=== PATIENT | female | born 1945 | race Caucasian/White ===

== ENCOUNTER → 2023-07-21 11:09 | Outpatient (REF) | payer MEDICARE, BC, SELFPAY ==
[2023-07-21 12:01] LABS: Urine Albumin 2+ (Neg - Trace); Urine Bilirubin Negative (Negative); Urine Character Slightly Cloudy (Clear); Urine Color Yellow; Urine Glucose Negative (Negative); Urine Ketone Negative (Negative); Urine Leukocyte 2+ (Negative); Urine Nitrite Negative (Negative); Urine Occult Blood 2+ (Negative); Urine Urobilinogen Negative (Neg - 1+)
[2023-07-21 12:14] LABS: Urine Squamous Cell >30 /LPF (Few)
[2023-07-21 12:15] LABS: Urine White Cell 80-90 /HPF (0-5)
[2023-07-21 12:17] LABS: Urine Bacteria Many (Negative); Urine Red Blood Cell 0-2 /HPF (0-2)
[2023-07-21 12:35] LABS: Blood Urea Nitrogen 32 mg/dl (7-17); Calcium 9.7 mg/dl (8.4-10.2); Carbon Dioxide 26 mmol/L (22-30); Chloride 102 mmol/L (98-107); Glucose 163 mg/dl (70-99); HDL Cholesterol 45 mg/dl; LDL Cholesterol, Calculated 184 mg/dl; Phosphorus 4.9 mg/dl (2.5-4.5); Potassium 4.6 mmol/L (3.5-5.1); Sodium 137 mmol/L (135-145); Total Cholesterol 280 mg/dl (50-199); Triglyceride 255 mg/dl (10-149); Very Low Density Lipoprotein 51 mg/dl (0-30); eGFR 25.26
[2023-07-21 12:40] LABS: TSH Reflex To Free T4 1.27 uIU/ml (0.47-4.68)
[2023-07-21 12:49] LABS: Hemoglobin 13.2 g/dL (12.0-16.0)
[2023-07-24 09:59] LABS: Intact PTH 72.3 pg/ml (13.6-85.8)
== END ==
LOC: REG 11:09
PROVIDERS: ATTENDING PHYSICIAN Specialist; FAMILY PHYSICIAN Family Medicine
DX: E78.49 Other hyperlipidemia (principal); R53.82 Chronic fatigue, unspecified; R31.9 Hematuria, unspecified; D64.9 Anemia, unspecified; N18.4 Chronic kidney disease, stage 4 (severe); E83.39 Other disorders of phosphorus metabolism
CPT/HCPCS: 36415; 80048; 80061; 81003; 81015; 83970; 84100; 84443; 85018

== ENCOUNTER → 2023-12-03 14:24 | Outpatient (REF) | payer MEDICARE, BC, SELFPAY | LOC: RAD 14:24 | PROVIDERS: ATTENDING PHYSICIAN Family Medicine | DX: R07.89 Other chest pain (principal) | CPT/HCPCS: 75571 ==

== ENCOUNTER → 2023-12-13 14:51 | Outpatient (REF) | payer MEDICARE, BC, SELFPAY | LOC: WDC 14:51 | PROVIDERS: ATTENDING PHYSICIAN Family Medicine | DX: Z12.31 Encounter for screening mammogram for malignant neoplasm of breast (principal) | CPT/HCPCS: 77063; 77067 ==

== ENCOUNTER → 2023-12-21 16:37 | Outpatient (REF) | payer MEDICARE, BC, SELFPAY | LOC: RCS 16:37 | PROVIDERS: ATTENDING PHYSICIAN Family Medicine | DX: R07.89 Other chest pain (principal) | CPT/HCPCS: 93306 ==

== ENCOUNTER → 2024-01-17 13:41 | Outpatient (REF) | payer MEDICARE, BC, SELFPAY ==
[2024-01-17 14:56] LABS: ALT (SGPT) 19 U/L (0-35); AST (SGOT) 21 U/L (14-36); Albumin 3.8 g/dl (3.5-5.0); Alkaline Phosphatase 47 U/L (38-126); Direct Bilirubin 0.1 mg/dl (0.0-0.4); Total Bilirubin 1.9 mg/dl (0.2-1.3); Total Protein 6.5 g/dl (6.3-8.2)
== END ==
LOC: REG 13:41
PROVIDERS: ATTENDING PHYSICIAN Nurse Practitioner Family; FAMILY PHYSICIAN Family Medicine; REFERRING PHYSICIAN Internal Medicine Interventional Cardiology
DX: E78.2 Mixed hyperlipidemia (principal); I70.90 Unspecified atherosclerosis
CPT/HCPCS: 36415; 80076

== ENCOUNTER → 2024-01-20 07:24 | Outpatient (REF) | payer MEDICARE, BC, SELFPAY | LOC: DHCBC/DCA 07:24 | PROVIDERS: ATTENDING PHYSICIAN Internal Medicine Interventional Cardiology; FAMILY PHYSICIAN Family Medicine | DX: R07.89 Other chest pain (principal) | CPT/HCPCS: 78452; 93017; A9500; J2785 ==

== ENCOUNTER 2024-01-24 10:08 | Inpatient (IN) | payer MEDICARE, BC, SELFPAY ==
[2024-01-24] VITALS (16 sets, daily range): BP systolic 124–165; BP diastolic 48–77; BMI 29.0; BMI 29.2
[2024-01-24] MEDS: NSS 237 ML IV (06:45)
[2024-01-24 06:57] LABS: Hematocrit 36.4 % (37.0-47.0); Hemoglobin 12.3 g/dL (12.0-16.0); Mean Corp Hgb Conc. 33.8 g/dL (33.0-37.0); Mean Corpuscular Hgb 27.2 pg (27.0-31.0); Mean Corpuscular Volume 80.5 fL (81.0-99.0); Mean Platelet Volume 7.9 fL (7.4-10.4); Platelet Count 218 10^3/uL (130-400); Red Blood Cell Count 4.52 10^6/uL (4.20-5.40); Red Cell Dist. Width 14.5 % (11.5-14.5); White Blood Cell Count 12.2 10^3/uL (4.8-10.8)
[2024-01-24 06:59] LABS: Glucose - Point of Care 130 mg/dl (70-99)
[2024-01-24 07:18] LABS: ALT (SGPT) 18 U/L (0-35); AST (SGOT) 23 U/L (14-36); Albumin 4.2 g/dl (3.5-5.0); Alkaline Phosphatase 50 U/L (38-126); Blood Urea Nitrogen 39 mg/dl (7-17); Calcium 9.8 mg/dl (8.4-10.2); Carbon Dioxide 22 mmol/L (22-30); Chloride 106 mmol/L (98-107); Estimated Creatinine Clearance 23 ml/min; Glucose 131 mg/dl (70-99); Potassium 4.7 mmol/L (3.5-5.1); Sodium 143 mmol/L (135-145); Total Protein 7.2 g/dl (6.3-8.2); eGFR 23.67
[2024-01-24] MEDS: ASPIR LOW (ENTERIC COATED) 81 MG PO (07:25)
--- NOTE | 2024-01-24 07:53 | ITS.CL.CATH ---
Industrial Laborer - Catheterization
Cardiac Catheterization
Procedure Report:
LEFT HEART CATHETERIZATION
Date of Procedure: January 24, 2024
Referring: Alexsandra Gómez MD, [facility], [facility]
PROCEDURES:
1. Left heart catheterization, coronary angiogram.
2. Ultrasound-guided access.
INDICATION: Exertional chest discomfort with abnormal stress test.
ACCESS: Right radial artery, 6 1 sheath, under ultrasound guidance.
HEMODYNAMICS : (mmHg)
AO (s/d) : 140/63
LV (s/d) : 132/70
LVEDP : 23
CORONARY FINDINGS
DOMINANCE: Right
LEFT MAIN: The left renal artery is a large-caliber vessel which has rise to the left anterior descending artery and the left circumflex artery. There is minimal luminal irregularities.
LEFT ANTERIOR DESCENDING: The left anterior descending artery is a medium to large caliber vessel which gives rise to 1 major diagonal branch as it courses through the anterior interventricular groove towards the apex. Mid LAD just proximal to the
takeoff of a medium to large caliber diagonal branch has a 90% hazy stenosis which is likely culprit for patient's ongoing symptoms and abnormal stress test. Proximal LAD has diffuse mild atherosclerotic plaque.
CIRCUMFLEX: The left circumflex artery is a medium caliber vessel which gives rise to 2 major obtuse marginal branches and a small to medium caliber left posterolateral branch. Mid left circumflex just proximal to OM 2 has a tubular 50% stenosis.
Otherwise there is minimal luminal irregularities.
RIGHT CORONARY ARTERY: The right coronary artery is a large-caliber, dominant vessel which gives rise to the right posterior descending artery and the right posterolateral system. There is a tubular 50% stenosis in the mid RCA which has otherwise
mild diffuse atherosclerotic plaque with mild coronary calcification.
SEDATION: 42minutes of procedural sedation was utilized. An independent medical scientist was present to assist with and help manage the patient's level of consciousness and physiologic status.
RADIATION SUMMARY: Fluoro Time (min): 4.0, Dose (mGy): 265.8 DAP (Gy.cm2) : 18.4
Closure Device: Vascular band over right radial artery, 10 cc of air.
CONCLUSIONS
1. Significant 85 to 90% mid LAD stenosis.
2. 50% mid RCA and mid left circumflex stenosis just proximal to OM takeoff.
3. Elevated LVEDP at 23 mmHg.
RECOMMENDATIONS
1. We loaded with 600 mg of Plavix with plans for a stage PCI in 48 hours in the setting of CKD stage IV.
2. Gentle diuresis in the setting of elevated LVEDP and nephrology input.
3. Continue daily baby aspirin and increase statin dose to high intensity.
4. Continue with beta-eugenia.
5. Eventual referral for outpatient cardiac rehab.
Alexsandra Gómez MD, FACC, [facility]
[2024-01-24] MEDS: NSS 1000 IV (09:35)
[2024-01-24] MEDS: LASIX 40 MG IV (09:55)
--- NOTE | 2024-01-24 10:49 | PTCARENOTE ---
Rec'd report from Alesia in the laboratory technologist; Rec'd pt AAOx3 w/no c/o CP or SOB. Pt able to ambulate from stretcher to BR then to bed w/1P assist & SPC. Pt's gait slow, but steady. Pt w/R radial band in place w/no signs or symptoms of bleeding or
hematoma. Pt's VS stable w/HR in the 60's, BP on arrival 153/63. Pt's SpO2 99-100% on RA. Pt w/call brooks within reach & plan of care ongoing.
--- NOTE | 2024-01-24 11:17 | PTCARENOTE ---
0953: Upon removing 3ml air from Right Radial band, pt noted to be bleeding at site. 3 ml air immediately replaced and bleeding stopped. Will continue to monitor. Pt tolerating all well.
1005: Pt to 2250, via stretcher, with RN x1, all approprite monitoring in place, without further incident or change. Updated pt report provided to Chad, RNs, at bedside. All questions addressed. Care transferred.
--- NOTE | 2024-01-24 12:03 | CM ---
spoke to pt in room, she is prev indep, lives with her husb in a split level home with 13 [address] [place]. she has a cane and a walker she uses. plan is for dc to home when medically stable.
[2024-01-24 12:14] LABS: Glucose - Point of Care 155 mg/dl (70-99)
--- NOTE | 2024-01-24 13:09 | W.CON.NEPH ---
Consultation
-
Date/Time Consultation Requested: 01/24/24 1149
Date/Time Consultation Performed: 01/24/24 1300
Requesting Provider: Dr Gabriele Stafford
Performing Provider: Chey Aburto
Reason for Consultation: CKD4
Medical History
-
Chief Complaint: s/p LHC for postive stress test
History of Present Illness:
Ms Walker is 79y/o F with PMH of CKD stage [address] Florentino cr baseline of 1.9-2, type2 DM on insulin, Ozempic, Hypothyroidism on Levothyroxine, HLD low dose statin, HTN on Bystolic who saw cards out pt for exertional CP and had positive stress
test. She had elective LHC today show LAD 85-90%, 50% mid RCA and Mid Circumflex art, LVEDP 23. She received a dose of lasix. Cards planning to have repeat cath Wednesday for stage PCI. Pt reprots no active CP, sob, no n/v. No abd pain. No dysuria.
Her cr at 2.1 today. Nephrology consulted for renal stabilization for next cath.
Past Medical History
Hypertension
Hyperlipidemia
Diabetes insulin-dependent without microvascular complications
Osteopenia
Hypothyroidism
CKD stage 4
History of hemodialysis Apr 2017 to Mar 2018
Anemia
Left arm fistula
History of microscopic hematuria with negative cystoscopy
Past Surgical History: Other (Left arm fistula, hip infection removal of prosthesis)
Social History
Tobacco: Former Smoker
Alcohol: None
Living: With Family
Family History
no history of kidney disease
Mother with the CAD and diabetes
Allergies / Home Medications
Allergy/AdvReac Type Severity Reaction Status Date / Time
AALIYAH Inhibitors Allergy SEE comment Verified 01/24/24 07:02
�Medication �Instructions �Recorded �Confirmed �Type
cholecalciferol (vitamin D3) 50 2,000 unit PO DAILY 02/26/17 01/24/24 History
mcg (2,000 unit) capsule (Vitamin
D3)
levothyroxine 125 mcg tablet 100 mcg PO ALYSHASA@0800 02/26/17 01/24/24 History
cyanocobalamin (vitamin B-12) 2,000 mcg PO DAILY ##30 05/15/17 01/24/24 Rx
2,000 mcg tablet,extended release
(Vitamin B-12 ER)
aspirin 81 mg chewable tablet 81 mg PO QPM 01/24/24 01/24/24 History
betamethasone valerate 0.1 % 1 applic topical TID PRN armpits 01/24/24 01/24/24 History
topical cream
famotidine 20 mg tablet (Pepcid) 20 mg PO BID 01/24/24 01/24/24 History
insulin glargine 100 unit/mL (3 10 unit SC HS 01/24/24 01/24/24 History
mL) subcutaneous pen (Lantus
Solostar U-100 Insulin)
nebivolol 5 mg tablet (Bystolic) 5 mg PO HS 01/24/24 01/24/24 History
rosuvastatin 5 mg tablet 5 mg PO HS 01/24/24 01/24/24 History
semaglutide 0.25 mg or 0.5 mg (2 0.5 mg SC QWEEK 01/24/24 01/24/24 History
mg/1.5 mL) subcutaneous pen
injector (Ozempic)
Review of Systems
-
All complete 12 point review of system inquiry and found negative other than stated in HPI
Physical Exam
Vital Signs
Vital Signs
Temp Pulse Resp BP Pulse Ox
97.7 F 68 18 149/75 100
01/24/24 11:37 01/24/24 11:30 01/24/24 11:37 01/24/24 11:15 01/24/24 11:37
Lab Results
WBC 12.2 10^3/uL (4.8-10.8) H 01/24/24 06:46
RBC 4.52 10^6/uL (4.20-5.40) 01/24/24 06:46
Hgb 12.3 g/dL (12.0-16.0) 01/24/24 06:46
Hct 36.4 % (37.0-47.0) L 01/24/24 06:46
Plt Count 218 10^3/uL (130-400) 01/24/24 06:46
Sodium 143 mmol/L (135-145) 01/24/24 06:46
Potassium 4.7 mmol/L (3.5-5.1) 01/24/24 06:46
Chloride 106 mmol/L (98-107) 01/24/24 06:46
Carbon Dioxide 22 mmol/L (22-30) 01/24/24 06:46
BUN 39 mg/dl (7-17) H 01/24/24 06:46
Creatinine 2.1 mg/dL (0.6-1.0) H 01/24/24 06:46
eGFR 23.67 01/24/24 06:46
Glucose 131 mg/dl (70-99) H 01/24/24 06:46
Calcium 9.8 mg/dl (8.4-10.2) 01/24/24 06:46
Albumin 4.2 g/dl (3.5-5.0) 01/24/24 06:46
Physical Exam
General: Awake, Alert, Oriented, AOx3, No Distress and Nontoxic
HEENT: EOMI, Anicteric, Conjunctivae Clear and Neck Supple
Respiratory: Clear, Normal Excursion and Nonlabored Respirations
Cardiac: S1/S2 and Regular Rate/Rhythm
Breast: Deferred by me
Abdomen: Soft, Nontender and Nondistended
Musculoskeletal: No Cyanosis and No Edema
Skin: No Rash
Neuro: Nonfocal/Grossly Intact
Psych: Mood/afflect pleasant, Insight/judgement good and Appropriate
Assessment/Plan
-
IMP:
Angina
CAD
CHD stage 4-cr 1.9-2, Dr Florentino
Hypertension
Hyperlipidemia
Diabetes insulin-dependent without microvascular complications
Osteopenia
Hypothyroidism
History of hemodialysis Apr 2017 to Mar 2018
Left arm fistula
History of microscopic hematuria with negative cystoscopy
Plan:
Had elective LHC today for angina and +ve stress test
plan stage PCI on 01/25
follow cr post contrast today
PCWP of 23, agree with lasix today
on RA, stable resp status, hold further lasix
follow labs
if cr at baseline ok for LHC on 01/25
Bp stable
d/w pt
--- NOTE | 2024-01-24 16:09 | HPS.HSE ---
Family Physician
-
Family Physician: Bree Ng
Chief Complaint
-
abnormal stress test and cath
History of Present Illness
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 Patient presented without any symptoms. Cath showed Significant 85 to 90% mid LAD stenosis, 50%
RCA/Circ stenosis and elevated LVEDP. Medicine was consulted for admission post-cath as patient will require intervention on Wednesday and also for nephrology input in setting of repeat cath with CKD history.
At present, patient is resting comfortably, no complaints. Denies any chest pain or SOB.
Medical History
Past Medical History
Past Medical History: Reports GERD and Other (HTN, DM, CKD stage 4 (previously on HD), Hypothyroidism)
Past Surgical History: Reports Orthopedic and Other (previous fistula placement for prior HD)
Social History
Tobacco: Former Smoker
Alcohol: None
Drug: None
Personal:
Living: With Family
Family History
Family History: Not pertinent
Allergies / Home Medications
Allergies reflects when Allergies were last updated in [facility].
Home Medications with original date entered in [facility]
Allergy/Medication List:
Allergies
Allergy/AdvReac Type Severity Reaction Status Date / Time
AALIYAH Inhibitors Allergy SEE comment Verified 01/24/24 07:02
Home Medications
cholecalciferol (vitamin D3) 50 mcg (2,000 unit) capsule (Vitamin D3) 2,000 unit PO DAILY 02/26/17
levothyroxine 125 mcg tablet 100 mcg PO MOTUWETHFRSA@0800 02/26/17
cyanocobalamin (vitamin B-12) 2,000 mcg tablet,extended release (Vitamin B-12 ER) 2,000 mcg PO DAILY ##30 05/15/17
aspirin 81 mg chewable tablet 81 mg PO QPM 01/24/24
betamethasone valerate 0.1 % topical cream 1 applic topical TID PRN armpits 01/24/24
famotidine 20 mg tablet (Pepcid) 20 mg PO BID 01/24/24
insulin glargine 100 unit/mL (3 mL) subcutaneous pen (Lantus Solostar U-100 Insulin) 10 unit SC HS 01/24/24
nebivolol 5 mg tablet (Bystolic) 5 mg PO HS 01/24/24
rosuvastatin 5 mg tablet 5 mg PO HS 01/24/24
semaglutide 0.25 mg or 0.5 mg (2 mg/1.5 mL) subcutaneous pen injector (Ozempic) 0.5 mg SC QWEEK 01/24/24
Review of Systems
-
A 12 point ROS was completed and negative except as noted: Yes
Physical Exam
Vital Signs
Vital Signs
Temp Pulse Resp BP Pulse Ox
97.8 F 74 18 126/55 98
01/24/24 15:54 01/24/24 15:45 01/24/24 15:54 01/24/24 15:35 01/24/24 15:54
Physical Exam
General: No Apparent Distress
HEENT: NormoCephalic and Anicteric
Respiratory: No Wheezes
Cardiac: S1/S2 and Regular Rhythm
GI: Soft and Non Tender
Musculoskeletal: No Cyanosis
Neuro: AO x 3
Psych: Calm
Laboratory Results
-
01/24/24 06:46
01/24/24 06:46
Laboratory Results
Total Bilirubin 2.0 mg/dl (0.2-1.3) H 01/24/24 06:46
AST 23 U/L (14-36) 01/24/24 06:46
ALT 18 U/L (0-35) 01/24/24 06:46
Alkaline Phosphatase 50 U/L (38-126) 01/24/24 06:46
Data Reviewed
-
Medical Tests (Nuc Med, Echo, EKG etc): Other (Echo, Cath)
Lab Data: Labs Reviewed by me
Impression/Plan
-
Assessment:
CAD
- recent abnormal outpatient stress test
- elective cath 01/23: Significant 85 to 90% mid LAD stenosis. 50% mid RCA and mid left circumflex stenosis just proximal to OM takeoff. Elevated LVEDP at 23 mmHg.
- for repeat Cath 01/25 per Cardiology with intervention
- continue ASA/Plavix/Statin/BB
- DCA Cards consulted
Hx of CKD stage 4
previously on HD in 2018
- Nephrology consult for pre-cath optimization
Essential HTN
- continue BB
type 2 DM
- continue Lantus 10 units HS
- continue SSI
- check A1c
- hold Ozempic
Hypothyroidism
- continue oral replacement
DVT ppx: Lovenox
Code: Full
--- NOTE | 2024-01-24 17:30 | PTCARENOTE ---
This RN in to see pt & check if pt had ordered dinner. Pt found to already be eating & have finished approx. 75% of her meal. Pt refused AccuCheck, stating 'it's going to be too high now' & 'I only check my sugar once a day'. This RN explained again
the plan for checking blood glucose levels before every meal and at bedtime & that we monitor blood sugar levels closely at the hospital. Pt stated she'd 'get with the program', & agreed to calling for staff to do AccuChecks prior to eating
'starting tomorrow morning'.
[2024-01-24] MEDS: LOVENOX 30 MG SC (18:06)
[2024-01-24] MEDS: CRESTOR 20 MG PO (18:07)
[2024-01-24] MEDS: COREG 6.25 MG PO (20:52)
[2024-01-24] MEDS: PEPCID 20 MG PO (20:53)
--- NOTE | 2024-01-24 21:00 | PTCARENOTE ---
Patient A+A+Ox3. No neurological deficits noted. Patient with no c/o pain or discomfort. Patient resting in bed watching television. Patient ambulates to bathroom with minimal assistance. Steady gait. Voiding without difficulty. SpO2 97%.
Room air. Sinus Rhythm. BBC. Heart rate 60-70's. Patient with no c/o chest pain, pressure or discomfort. Left upper extremity with AV Fistula - Positive Bruit, Positive Thrill. Right radial site s/p cardiac cath - Dressing intact - Positive
pulse - Positive circulation, sensation and mobility to right upper extremity. Assessment as documented.
[2024-01-24 21:50] LABS: Glucose - Point of Care 145 mg/dl (70-99)
[2024-01-24] MEDS: LANTUS 0.1 UNITS SC (22:46)
[2024-01-25] VITALS (8 sets, daily range): BP systolic 115–127; BP diastolic 52–63; BMI 28.0
--- NOTE | 2024-01-25 01:00 | PTCARENOTE ---
Patient sleeping without difficulty. No further changes from previous assessment.
[2024-01-25 05:52] LABS: Hematocrit 34.6 % (37.0-47.0); Hemoglobin 11.7 g/dL (12.0-16.0); Mean Corp Hgb Conc. 33.8 g/dL (33.0-37.0); Mean Corpuscular Hgb 27.1 pg (27.0-31.0); Mean Corpuscular Volume 80.1 fL (81.0-99.0); Platelet Count 218 10^3/uL (130-400); Red Blood Cell Count 4.32 10^6/uL (4.20-5.40); Red Cell Dist. Width 14.3 % (11.5-14.5); White Blood Cell Count 10.1 10^3/uL (4.8-10.8)
[2024-01-25 06:14] LABS: ALT (SGPT) 17 U/L (0-35); AST (SGOT) 22 U/L (14-36); Albumin 3.7 g/dl (3.5-5.0); Alkaline Phosphatase 52 U/L (38-126); Blood Urea Nitrogen 41 mg/dl (7-17); Calcium 9.4 mg/dl (8.4-10.2); Carbon Dioxide 20 mmol/L (22-30); Chloride 104 mmol/L (98-107); Estimated Creatinine Clearance 24 ml/min; Glucose 135 mg/dl (70-99); HDL Cholesterol 42 mg/dl; LDL Cholesterol, Calculated 32 mg/dl; Potassium 4.3 mmol/L (3.5-5.1); Sodium 139 mmol/L (135-145); Total Bilirubin 2.1 mg/dl (0.2-1.3); Total Cholesterol 122 mg/dl (50-199); Total Protein 6.5 g/dl (6.3-8.2); Triglyceride 243 mg/dl (10-149); Very Low Density Lipoprotein 48 mg/dl (0-30)
[2024-01-25 07:37] LABS: Glucose - Point of Care 135 mg/dl (70-99)
[2024-01-25] MEDS: SYNTHROID 100 MCG PO (07:40)
--- NOTE | 2024-01-25 07:46 | W.PN.CARDCBS ---
Addendum entered and electronically signed by Ileana Evans PA-C 01/25/24 15:26:
called patient's PCP office - asked about reasoning behind why patient was told to hold crestor. able to tell me that patient was called yesterday and told to hold due to Tbili being 1.8. AST/ALT/ALP were all within normal range.
Addendum entered and electronically signed by Wiliam Stone MD 01/25/24 10:45:
I saw and examined the patient.
The MOLD DRESSER or PA's note was reviewed and I agree with the note.
Comment: General: Well developed, well nourished in NAD.
Neck: Supple, no JVD, HJR, carotids +2 B/L, no bruits bilaterally.
Heart: Non displaced PMI, RRR, no murmurs, No S3, S4, no rubs.
Lungs: Clear to auscultation bilaterally, no wheeze, rhonchi, rubs bilaterally,
normal expiratory phase.
Extremities: No clubbing, cyanosis or edema bilaterally.
Neuro: Grossly nonfocal, awake, alert and oriented x3.
She is doing well. Plan is for LAD stent on 01/26/2024. Renal function remains stable.
Original Note:
Today's Communication / Plan
-
plan for LAD PCI 01/26/24
Cr stable
continue asa, plavix, crestor, coreg
Impression / Plan
-
PCP: Dr. Bree Ng
Primary Television Mechanic: Dr. Gómez
Assessment:
CP
Abnormal stress test
85-90% LAD stenosis, 50% RCA/circ stenosis by cath 01/24/24
CKD stage 4
HTN
HLD
DM
Hypothyroidism
ECHO 12/21/23: EF 50-55%, small, mild hypokinesis in mid to distal segments of anterior and anteroseptal song, mild MR, mild
Lexiscan nuclear stress test 01/20/24: abnormal perfusion imaging with distal apical anterior ischemia, EF 40%
Plan:
-Presented for elective cath after abnormal OP stress test. cath with significant LAD disease
-plan for staged LAD PCI 01/26/24. NPO after midnight
-Cr stable at 2.0
-received IV lasix 01/23. holding off on additional lasix at present. appreciate nephrology input
-continue asa, plavix
-LDL 32, triglycerides 243. crestor dose increased. will call PCP office as patient states was told to go off crestor due to ? elevated LFTs
-continue coreg. was on nebivolol as OP
-in SR upon review of tele overnight
-cardiac rehab
Progress Note - Television Mechanic
Subjective
Date of Service: January 25, 2024
no CP, SOB overnight
Objective
Labs:
01/25/24 05:32
01/25/24 05:32
Labs
Hgb 11.7 g/dL (12.0-16.0) L 01/25/24 05:32
Hct 34.6 % (37.0-47.0) L 01/25/24 05:32
Plt Count 218 10^3/uL (130-400) 01/25/24 05:32
Sodium 139 mmol/L (135-145) 01/25/24 05:32
Potassium 4.3 mmol/L (3.5-5.1) 01/25/24 05:32
BUN 41 mg/dl (7-17) H 01/25/24 05:32
Creatinine 2.0 mg/dL (0.6-1.0) H 01/25/24 05:32
Glucose 135 mg/dl (70-99) H 01/25/24 05:32
Vital Signs and I&O:
Vital Signs
Temp Pulse Resp BP Pulse Ox
97.5 F 68 16 115/63 100
01/25/24 07:35 01/25/24 07:35 01/25/24 07:35 01/25/24 07:35 01/25/24 07:35
Vital Signs
Temp Pulse Resp BP Pulse Ox
97.5 F 68 16 115/63 100
01/25/24 07:35 01/25/24 07:35 01/25/24 07:35 01/25/24 07:35 01/25/24 07:35
Intake & Output
01/22/24 01/23/24 01/24/24 01/25/24
07:59 07:59 07:59 07:59
Intake Total 1460 / 1460
Balance 1460 / 1460
Physical Exam
Physical Exam
GEN: No distress, awake, alert, oriented x3
HEENT: supple, anicteric, mmm, eomi
LUNGS: CTA B/L, no wheezes
CV: Reg, S1/S2, no murmur
ABD: soft, BS+, NT/ND
EXT: No cyanosis, clubbing, edema
NEURO: Gross non-focal
SKIN: Warm, pink, dry. No rash. R wrist dressing c/d/i
[2024-01-25] MEDS: PEPCID 20 MG PO (08:34)
[2024-01-25] MEDS: PLAVIX 75 MG PO (08:34)
[2024-01-25] MEDS: LOW STRENGTH ASPIRIN 81 MG PO (08:34)
[2024-01-25] MEDS: COREG 6.25 MG PO ×2 (08:34→19:43)
[2024-01-25 09:23] LABS: Glycohemoglobin (HgbA1c) 7.6 % (4.0-5.6)
--- NOTE | 2024-01-25 09:55 | PTCARENOTE ---
Assumed care of pt from [facility] RN. Pt received awake and alert, Ox3. VSs, CM shows NSR 70's, POX 100% on RA. Right radial site remains CDI with normal CMS. Pt planned for staged PCI on Wednesday.
--- NOTE | 2024-01-25 11:40 | W.PN.NEPH.PH ---
Today's Communication / Plan
-
follow labs
if cr baseline ok for cath tomorrow
Assessment/Plan
-
IMP:
Angina
CAD
CHD stage 4-cr 1.9-2, Dr Florentino
Hypertension
Hyperlipidemia
Diabetes insulin-dependent without microvascular complications
Osteopenia
Hypothyroidism
History of hemodialysis Apr 2017 to Mar 2018
Left arm fistula
History of microscopic hematuria with negative cystoscopy
Plan:
Had elective LHC 01/23 for angina and +ve stress test
plan stage PCI on 01/25
follow cr post contrast so far stable
PCWP was 23, s/p lasix wt is improving
on RA, stable resp status, hold further lasix
if cr at baseline ok for LHC on 01/25
Bp stable, meds adjustment per cards
d/w pt
-
-
Date of Service: January 25, 2024
CC / HPI / ROS
-
Chief Complaint:
CKD
History of Present Illness:
cr stable 2
BP stable, mild met acidosis bicarb 20
Review of Systems:
no cp or sob
feels well
Labs
-
Labs:
WBC 10.1 10^3/uL (4.8-10.8) 01/25/24 05:32
RBC 4.32 10^6/uL (4.20-5.40) 01/25/24 05:32
Hgb 11.7 g/dL (12.0-16.0) L 01/25/24 05:32
Hct 34.6 % (37.0-47.0) L 01/25/24 05:32
Plt Count 218 10^3/uL (130-400) 01/25/24 05:32
Sodium 139 mmol/L (135-145) 01/25/24 05:32
Potassium 4.3 mmol/L (3.5-5.1) 01/25/24 05:32
Chloride 104 mmol/L (98-107) 01/25/24 05:32
Carbon Dioxide 20 mmol/L (22-30) L 01/25/24 05:32
BUN 41 mg/dl (7-17) H 01/25/24 05:32
Creatinine 2.0 mg/dL (0.6-1.0) H 01/25/24 05:32
eGFR 25.10 01/25/24 05:32
Glucose 135 mg/dl (70-99) H 01/25/24 05:32
Calcium 9.4 mg/dl (8.4-10.2) 01/25/24 05:32
Albumin 3.7 g/dl (3.5-5.0) 01/25/24 05:32
Physical Exam
-
Vital Signs:
Vital Signs
Temp Pulse Resp BP Pulse Ox
97.5 F 68 16 115/63 100
01/25/24 07:35 01/25/24 07:45 01/25/24 07:35 01/25/24 07:37 01/25/24 09:46
Cardiovascular:: Regular rate and rhythm
Respiratory:: Bilateral: CTA
Lung Excursion:: Normal
Abdomen:: Nontender and Soft
Extremity Edema:: None: Bilateral:
Antonio Catheter: No
[2024-01-25 12:20] LABS: Glucose - Point of Care 144 mg/dl (70-99)
--- NOTE | 2024-01-25 13:07 | W.PN.HOSP.TC ---
Today's Communication/Plan
-
Cath tomorrow if AM Renal labs ok
Assessment / Plan
Assessment / Plan
Assessment:
CAD
- recent abnormal outpatient stress test
- elective cath 01/23: Significant 85 to 90% mid LAD stenosis. 50% mid RCA and mid left circumflex stenosis just proximal to OM takeoff. Elevated LVEDP at 23 mmHg.
- for repeat Cath 01/25 per Cardiology with intervention
- continue ASA/Plavix/Statin/BB
- DCA Cards following
Hx of CKD stage 4
previously on HD in 2018
- Cr baseline is 1.9 to 2.0
- Nephrology following for pre-cath optimization
Essential HTN
- continue BB
type 2 DM
- continue Lantus 10 units HS
- continue SSI
- A1c 7.6%
- hold Ozempic
Hypothyroidism
- continue oral replacement
DVT ppx: Lovenox
Code: Full
Anticipated Discharge: > 48 hours
Subjective/Interval History
-
Date of Service: January 25, 2024
asymptomatic
Cr at 2.0
Objective Data
-
Labs:
Laboratory Results
01/25/24
05:32
WBC 10.1
Hgb 11.7 L
Hct 34.6 L
Plt Count 218
Sodium 139
Potassium 4.3
Chloride 104
Carbon Dioxide 20 L
BUN 41 H
Creatinine 2.0 H
Glucose 135 H
Calcium 9.4
Total Bilirubin 2.1 H
AST 22
ALT 17
Alkaline Phosphatase 52
Vital Signs:
Vital Signs
Temp Pulse Resp BP Pulse Ox
97.1 F 68 18 115/63 98
01/25/24 12:17 01/25/24 07:45 01/25/24 12:17 01/25/24 07:37 01/25/24 12:17
I&O
01/24/24 01/25/24 01/26/24
06:59 06:59 06:59
Intake Total 1460 / 1460
Balance 1460 / 1460
Physical Exam
-
General: No Apparent Distress
HEENT: Normocephalic and Atraumatic
Respiratory: Negative Wheezes
Cardiac: Regular Rhythm and S1/S2
GI: Soft
Musculoskeletal: No Edema
Neuro: AO x 3
Hematologic / Lymphatic: No Lymphadenopathy
Psych: Calm
Data Reviewed
-
Total Time Spent with Patient (in minutes): 42
Labs: Labs Reviewed by me
[2024-01-25 17:21] LABS: Glucose - Point of Care 135 mg/dl (70-99)
[2024-01-25] MEDS: CRESTOR 20 MG PO (17:22)
[2024-01-25] MEDS: LOVENOX 30 MG SC (17:22)
[2024-01-25] MEDS: COLACE 100 MG PO (22:27)
[2024-01-25] MEDS: LANTUS 0.1 UNITS SC (22:27)
[2024-01-25 22:34] LABS: Glucose - Point of Care 207 mg/dl (70-99)
[2024-01-26] VITALS (13 sets, daily range): BP systolic 109–151; BP diastolic 46–71; BMI 28.1
[2024-01-26] MEDS: SYNTHROID 100 MCG PO (05:05)
[2024-01-26 05:07] LABS: Hematocrit 35.8 % (37.0-47.0); Hemoglobin 12.1 g/dL (12.0-16.0); Mean Corp Hgb Conc. 33.8 g/dL (33.0-37.0); Mean Corpuscular Hgb 27.3 pg (27.0-31.0); Mean Corpuscular Volume 80.8 fL (81.0-99.0); Mean Platelet Volume 8.2 fL (7.4-10.4); Platelet Count 221 10^3/uL (130-400); Red Blood Cell Count 4.43 10^6/uL (4.20-5.40); Red Cell Dist. Width 14.4 % (11.5-14.5); White Blood Cell Count 10.1 10^3/uL (4.8-10.8)
[2024-01-26 05:37] LABS: ALT (SGPT) 16 U/L (0-35); AST (SGOT) 20 U/L (14-36); Albumin 3.9 g/dl (3.5-5.0); Alkaline Phosphatase 47 U/L (38-126); Blood Urea Nitrogen 41 mg/dl (7-17); Calcium 9.5 mg/dl (8.4-10.2); Carbon Dioxide 26 mmol/L (22-30); Chloride 102 mmol/L (98-107); Estimated Creatinine Clearance 23 ml/min; Glucose 149 mg/dl (70-99); Potassium 4.3 mmol/L (3.5-5.1); Sodium 140 mmol/L (135-145); Total Bilirubin 1.9 mg/dl (0.2-1.3); Total Protein 6.7 g/dl (6.3-8.2); eGFR 23.67
--- NOTE | 2024-01-26 06:04 | PTCARENOTE ---
Pt NSR on monitor, VSS. Denies pain or discomfort. Ambulates in the room and outside the room independently with single point cane.
[2024-01-26] MEDS: PLAVIX 75 MG PO (08:05)
[2024-01-26] MEDS: LOW STRENGTH ASPIRIN 81 MG PO (08:05)
[2024-01-26 08:08] LABS: Glucose - Point of Care 156 mg/dl (70-99)
[2024-01-26] MEDS: PEPCID 20 MG PO (08:08)
--- NOTE | 2024-01-26 08:14 | ITS.CL.CATH ---
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
Cardiac Catheterization
Procedure Report:
CORONARY INTERVENTION
Date of Procedure: January 26, 2024
Referring: Alexsandra Gómez MD, [facility], [facility]
PROCEDURES:
1. Left coronary angiogram.
2. Ultrasound-guided access.
3. Successful percutaneous coronary artery intervention of a 90% hazy mid LAD stenosis with one 3.0 x 23 mm Xience keven point drug-eluting stent, postdilated with a 3.0 x 20 mm NC balloon at 18 ashley with an excellent angiographic result.
INDICATION: Exertional chest discomfort with abnormal stress test, significant mid LAD stenosis with planned PCI today.
ACCESS: Right radial artery, 6 Fr. sheath, under ultrasound guidance.
HEMODYNAMICS : (mmHg)
AO (s/d) : 134/45
LV (s/d) : 137/10
LVEDP : 16
CORONARY FINDINGS
DOMINANCE: Right
LEFT MAIN: The left main artery is a large-caliber vessel which has rise to the left anterior descending artery and the left circumflex artery. There is minimal luminal irregularities.
LEFT ANTERIOR DESCENDING: The left anterior descending artery is a medium to large caliber vessel which gives rise to 1 major diagonal branch as it courses through the anterior interventricular groove towards the apex. Mid LAD just proximal to the
takeoff of a medium to large caliber diagonal branch has a 90% hazy stenosis which is likely culprit for patient's ongoing symptoms and abnormal stress test. Proximal LAD has diffuse mild to moderate up to 40 to 50% atherosclerotic plaque.
CIRCUMFLEX: The left circumflex artery is a medium caliber vessel which gives rise to 2 major obtuse marginal branches and a small to medium caliber left posterolateral branch. Mid left circumflex just proximal to OM 2 has a tubular 50% stenosis.
Otherwise there is minimal luminal irregularities.
RIGHT CORONARY ARTERY: The right coronary artery was not re-looked at on the study. On recent diagnostic heart catheterization 2 days ago, the right coronary artery is a large-caliber, dominant vessel which gives rise to the right posterior
descending artery and the right posterolateral system. There is a tubular 50% stenosis in the mid RCA which has otherwise mild diffuse atherosclerotic plaque with mild coronary calcification.
CORONARY INTERVENTION: The left coronary artery was selectively engaged using a 6 Micronesian EBU 3.5 guide catheter. A 190 cm 0.014' BMW coronary wire was carefully navigated across the mid LAD stenosis into the large caliber diagonal branch (given
distal LAD was small in caliber). The lesion was predilated using a 3.0 x 15 mm semicompliant balloon at 14 ashley with good expansion. The lesion was subsequently stented using a 3.0 x 23 mm Xience keven point drug-eluting stent and postdilated with a
3.0 x 20 mm NC balloon at 18 ashley with an excellent angiographic result and EVITA-3 flow into the distal vessels. Patient had been loaded with 600 mg of Plavix on January 24, 2024 after her diagnostic case. She tolerated the procedure well with no
acute complications.
SEDATION: 55 minutes of procedural sedation was utilized. An independent medical management specialist was present to assist with and help manage the patient's level of consciousness and physiologic status.
RADIATION SUMMARY: Fluoro Time (min): 11.7, Dose (mGy): 642.29 DAP (Gy.cm2) : 41.3
Closure Device: Vascular band over right radial artery, 10 cc of air.
CONCLUSIONS
1. Successful percutaneous coronary artery intervention of a 90% hazy mid LAD stenosis with one 3.0 x 23 mm Xience keven point drug-eluting stent, postdilated with a 3.0 x 20 mm NC balloon at 18 ashley with an excellent angiographic result.
2. Proximal LAD with diffuse up to 40 to 50% atherosclerotic plaque.
3. 50% mid RCA and mid left circumflex stenosis just proximal to OM takeoff.
4. Mildly elevated LVEDP at 16 mmHg.
RECOMMENDATIONS
1. Continue dual antiplatelet therapy with daily baby aspirin and Plavix 75 mg along with high intensity statin and beta-eugenia.
2. Gentle diuresis in the setting of mildly elevated LVEDP and nephrology input with baseline CKD stage IV.
3. Aggressive management of cardiovascular risk factors.
4. Eventual referral for outpatient cardiac rehab.
Alexsandra Gómez MD, FACC, [facility]
[2024-01-26 08:56] LABS: ACT-LR - POC 268 Seconds (116-155)
[2024-01-26 09:15] LABS: ACT-LR - POC 305 Seconds (116-155)
[2024-01-26] MEDS: NSS 1000 IV (10:13)
[2024-01-26] MEDS: COREG 6.25 MG PO ×2 (10:15→19:42)
--- NOTE | 2024-01-26 11:26 | W.PN.HOSP.TC ---
Today's Communication/Plan
-
follow post-cath protocol
Assessment / Plan
Assessment / Plan
Assessment:
CAD
- recent abnormal outpatient stress test
- elective cath 01/23: Significant 85 to 90% mid LAD stenosis. 50% mid RCA and mid left circumflex stenosis just proximal to OM takeoff. Elevated LVEDP at 23 mmHg.
- s/p interventional cath 01/25 with LAD stenting
- continue ASA/Plavix/Statin/BB
- DCA Cards following
- OP Cardiac rehab
Hx of CKD stage 4
previously on HD in 2017
- Cr baseline is 1.9 to 2.1
- Nephrology following
Essential HTN
- continue BB
type 2 DM
- continue Lantus 10 units HS
- continue SSI
- A1c 7.6%
- hold Ozempic
Hypothyroidism
- continue oral replacement
DVT ppx: Lovenox
Code: Full
Anticipated Discharge: Within 24 hours
Subjective/Interval History
-
Date of Service: January 26, 2024
seen s/p cath with LAD stent
Objective Data
-
Labs:
Laboratory Results
01/26/24
04:49
WBC 10.1
Hgb 12.1
Hct 35.8 L
Plt Count 221
Sodium 140
Potassium 4.3
Chloride 102
Carbon Dioxide 26
BUN 41 H
Creatinine 2.1 H
Glucose 149 H
Calcium 9.5
Total Bilirubin 1.9 H
AST 20
ALT 16
Alkaline Phosphatase 47
Vital Signs:
Vital Signs
Temp Pulse Resp BP Pulse Ox
97.7 F 63 18 117/54 98
01/26/24 08:03 01/26/24 10:15 01/26/24 08:03 01/26/24 10:15 01/26/24 08:03
I&O
01/25/24 01/26/24 01/27/24
06:59 06:59 06:59
Intake Total 1460 / 1460 240 / 240
Balance 1460 / 1460 240 / 240
Physical Exam
-
General: No Apparent Distress
HEENT: Normocephalic and Atraumatic
Respiratory: Negative Wheezes
Cardiac: Regular Rhythm and S1/S2
GI: Soft and Nontender
Musculoskeletal: No Edema
Neuro: AO x 3
Hematologic / Lymphatic: No Lymphadenopathy
Psych: Calm
Data Reviewed
-
Total Time Spent with Patient (in minutes): 42
Labs: Labs Reviewed by me
--- NOTE | 2024-01-26 11:29 | CM ---
CM following for DC planning needs.
Met w/ patient, spouse and family @ bedside.
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
Reviewed initial assessment. Pt. resides in split level home w/ spouse. There are 13 [address]. Functionally, patient is indep. w/ use of a cane or walker PRN.
DC plan is for home without anticipated needs.
CM to follow for any needs that may arise.
--- NOTE | 2024-01-26 12:21 | W.PN.NEPH.PH ---
Today's Communication / Plan
-
follow BMP
Assessment/Plan
-
IMP:
Angina
CAD
CHD stage 4-cr 1.9-2, Dr Florentino
Hypertension
Hyperlipidemia
Diabetes insulin-dependent without microvascular complications
Osteopenia
Hypothyroidism
History of hemodialysis Apr 2017 to Mar 2018
Left arm fistula
History of microscopic hematuria with negative cystoscopy
Plan:
Had elective LHC 01/23 for angina and +ve stress test
PCI LAD 01/25
follow cr post contrast
intolerant to ACEI
Kerendia too expensive
on Ozempic as OP
had an OP discussion about SGLT2i, no contraindications recorded
-
-
Date of Service: January 26, 2024
CC / HPI / ROS
-
Chief Complaint:
CKD
History of Present Illness:
cr stable 2.1
BP stable
acidosis resolved
s/p cardiac cath 01/25 LAD PCI
Review of Systems:
no cp or sob
feels well
Labs
-
Labs:
WBC 10.1 10^3/uL (4.8-10.8) 01/26/24 04:49
RBC 4.43 10^6/uL (4.20-5.40) 01/26/24 04:49
Hgb 12.1 g/dL (12.0-16.0) 01/26/24 04:49
Hct 35.8 % (37.0-47.0) L 01/26/24 04:49
Plt Count 221 10^3/uL (130-400) 01/26/24 04:49
Sodium 140 mmol/L (135-145) 01/26/24 04:49
Potassium 4.3 mmol/L (3.5-5.1) 01/26/24 04:49
Chloride 102 mmol/L (98-107) 01/26/24 04:49
Carbon Dioxide 26 mmol/L (22-30) 01/26/24 04:49
BUN 41 mg/dl (7-17) H 01/26/24 04:49
Creatinine 2.1 mg/dL (0.6-1.0) H 01/26/24 04:49
eGFR 23.67 01/26/24 04:49
Glucose 149 mg/dl (70-99) H 01/26/24 04:49
Calcium 9.5 mg/dl (8.4-10.2) 01/26/24 04:49
Albumin 3.9 g/dl (3.5-5.0) 01/26/24 04:49
Physical Exam
-
Vital Signs:
Vital Signs
Temp Pulse Resp BP Pulse Ox
97.4 F 63 18 117/54 99
01/26/24 12:00 01/26/24 10:15 01/26/24 12:00 01/26/24 10:15 01/26/24 12:00
Cardiovascular:: Regular rate and rhythm
Respiratory:: Bilateral: CTA
Lung Excursion:: Normal
Abdomen:: Nontender and Soft
Bowel Sounds:: Normal
Extremity Edema:: None: Bilateral:
--- NOTE | 2024-01-26 12:22 | PTCARENOTE ---
Received pt post cardiac cath. Right radial R band intact. VSS. NSS at 115 ml/hr x 5 hrs. Pt denies any chest discomfort or SOB. Will monitor.
[2024-01-26 12:39] LABS: Glucose - Point of Care 121 mg/dl (70-99)
[2024-01-26] MEDS: TYLENOL 650 MG PO (15:06)
[2024-01-26 17:13] LABS: Glucose - Point of Care 126 mg/dl (70-99)
[2024-01-26] MEDS: LOVENOX 30 MG SC (17:18)
[2024-01-26] MEDS: CRESTOR 20 MG PO (17:18)
[2024-01-26] MEDS: COLACE 100 MG PO (19:42)
[2024-01-26 21:39] LABS: Glucose - Point of Care 142 mg/dl (70-99)
[2024-01-26] MEDS: LANTUS 0.1 UNITS SC (21:40)
[2024-01-27 03:44] VITALS: BP 125/54
[2024-01-27 03:56] VITALS: BMI 28.3
[2024-01-27 04:53] LABS: Hematocrit 34.8 % (37.0-47.0); Hemoglobin 11.5 g/dL (12.0-16.0); Mean Corpuscular Hgb 27.6 pg (27.0-31.0); Mean Corpuscular Volume 83.7 fL (81.0-99.0); Mean Platelet Volume 8.3 fL (7.4-10.4); Platelet Count 198 10^3/uL (130-400); Red Blood Cell Count 4.16 10^6/uL (4.20-5.40); Red Cell Dist. Width 14.4 % (11.5-14.5); White Blood Cell Count 9.4 10^3/uL (4.8-10.8)
[2024-01-27 05:20] LABS: Blood Urea Nitrogen 37 mg/dl (7-17); Carbon Dioxide 19 mmol/L (22-30); Chloride 106 mmol/L (98-107); Estimated Creatinine Clearance 24 ml/min; Glucose 127 mg/dl (70-99); Potassium 4.6 mmol/L (3.5-5.1); Sodium 141 mmol/L (135-145)
[2024-01-27] MEDS: SYNTHROID 100 MCG PO (05:44)
--- NOTE | 2024-01-27 05:46 | PTCARENOTE ---
Pt NSR on monitor, VSS. Denies any pain or discomfort. Ambulates independently with single point cane. Safety measures in place
--- NOTE | 2024-01-27 08:07 | W.PN.CARDCBS ---
Addendum entered and electronically signed by Alexsandra Gómez MD 01/27/24 16:48:
I saw and examined the patient.
The Treasury Consultant's note was reviewed and I agree with the note.
Comment: Overall patient is doing well and does not offer any significant complaints. No chest discomfort recurrent overnight. No significant issues at the right radial access site.
Lab work and vital signs reviewed. On exam patient is well-appearing, out of bed into a chair, normal S1 and S2, no murmurs, rubs or gallops, right radial site has 2+ radial pulse without evidence of hematoma or bruit, abdomen is soft, nontender,
nondistended with active bowel sounds, warm extremities.
Recommendations:
1. Patient is status post LAD PCI with plan to continue dual antiplatelet therapy with daily baby aspirin and Plavix along with high intensity statin and beta-eugenia as tolerated.
2. We reviewed all the medication changes made and I wrote down notes for her in her discharge paperwork.
3. Outpatient cardiac rehab will be referred.
4. Patient is otherwise stable for discharge home with outpatient follow-up scheduled.
Alexsandra Gómez MD, [facility], [facility]
Original Note:
Today's Communication / Plan
-
s/p LAD PCI
continue asa, plavix, crestor, coreg
cardiac rehab
ambulate this AM
OP cardiac follow up arranged
Impression / Plan
-
PCP: Dr. Bree Ng
Primary Certified Neurodiagnostic Technologist: Dr. Gómez
Assessment:
CP
Abnormal stress test
85-90% LAD stenosis, 50% RCA/circ stenosis by cath 01/24/24
CKD stage 4
HTN
HLD
DM
Hypothyroidism
ECHO 12/21/23: EF 50-55%, small, mild hypokinesis in mid to distal segments of anterior and anteroseptal song, mild MR, mild
Lexiscan nuclear stress test 01/20/24: abnormal perfusion imaging with distal apical anterior ischemia, EF 40%
Plan:
-s/p LAD PCI 01/26/24
-feeling well overnight
-R wrist site c/d/i, mild ecchymoses, NTTP
-continue asa, plavix
-Cr stable at 2.0
-received IV lasix 01/23. additional diuretic therapy per nephrology. currently on RA, without SOB
-ambulate patient
-continue crestor at increased dose.
-continue coreg. was on nebivolol as OP
-in SR upon review of tele overnight
-cardiac rehab
-OP cardiac follow up arranged
-ok for DC to home today from cardiac standpoint
-d/w nursing
Progress Note - Certified Neurodiagnostic Technologist
Subjective
Date of Service: January 27, 2024
no CP, SOB. R wrist site without issues. eager for DC
Objective
Labs:
01/27/24 03:54
01/27/24 03:54
Labs
Hgb 11.5 g/dL (12.0-16.0) L 01/27/24 03:54
Hct 34.8 % (37.0-47.0) L 01/27/24 03:54
Plt Count 198 10^3/uL (130-400) 01/27/24 03:54
Sodium 141 mmol/L (135-145) 01/27/24 03:54
Potassium 4.6 mmol/L (3.5-5.1) 01/27/24 03:54
BUN 37 mg/dl (7-17) H 01/27/24 03:54
Creatinine 2.0 mg/dL (0.6-1.0) H 01/27/24 03:54
Glucose 127 mg/dl (70-99) H 01/27/24 03:54
Vital Signs and I&O:
Vital Signs
Temp Pulse Resp BP Pulse Ox
98.3 F 70 16 125/54 97
01/27/24 03:44 01/27/24 03:45 01/27/24 03:44 01/27/24 03:44 01/27/24 03:44
Vital Signs
Temp Pulse Resp BP Pulse Ox
98.3 F 70 16 125/54 97
01/27/24 03:44 01/27/24 03:45 01/27/24 03:44 01/27/24 03:44 01/27/24 03:44
Intake & Output
01/25/24 01/26/24 01/27/24 01/28/24
07:59 07:59 07:59 07:59
Intake Total 1460 / 1460 240 / 240 1170 / 1170
Balance 1460 / 1460 240 / 240 1170 / 1170
Physical Exam
Physical Exam
GEN: No distress, awake, alert, oriented x3
HEENT: supple, anicteric, mmm, eomi
LUNGS: CTA B/L, no wheezes/rales
CV: Reg, S1/S2, no murmur
ABD: soft, BS+, NT/ND
EXT: No cyanosis, clubbing, edema
NEURO: Gross non-focal
SKIN: Warm, pink, dry. No rash. R wrist site c/d/i, NTTP, mild ecchymoses
[2024-01-27 08:35] VITALS: BP 121/53
[2024-01-27] MEDS: PLAVIX 75 MG PO (08:37)
[2024-01-27] MEDS: LOW STRENGTH ASPIRIN 81 MG PO (08:37)
[2024-01-27] MEDS: COREG 6.25 MG PO (08:37)
[2024-01-27] MEDS: PEPCID 20 MG PO (08:38)
[2024-01-27 08:44] LABS: Glucose - Point of Care 148 mg/dl (70-99)
--- NOTE | 2024-01-27 10:30 | PTCARENOTE ---
Pt ambulating in [place] with single point cane, brian well, denies CP
[2024-01-27 11:14] VITALS: BP 121/56
--- NOTE | 2024-01-27 11:34 | CM ---
CM following for DC planning needs.
CM met w/ patient at bedside. She is hopeful for DC soon. There are no anticipated needs at this time.
Plan is for home once medically stable.
Will remain available.
--- NOTE | 2024-01-27 12:20 | W.PN.NEPH.PH ---
Today's Communication / Plan
-
dc
Assessment/Plan
-
IMP:
Angina
CAD
CHD stage 4-cr 1.9-2, Dr Florentino
Hypertension
Hyperlipidemia
Diabetes insulin-dependent without microvascular complications
Osteopenia
Hypothyroidism
History of hemodialysis Apr 2017 to Mar 2018
Left arm fistula
History of microscopic hematuria with negative cystoscopy
Plan:
Had elective LHC 01/23 for angina and +ve stress test
PCI LAD 01/25
follow cr post contrast
intolerant to ACEI
Kerendia too expensive
on Ozempic as OP
had an OP discussion about SGLT2i, no contraindications recorded
Okay to resume all outpatient medications
Blood work to be done in 1 week
-
-
Date of Service: January 27, 2024
CC / HPI / ROS
-
Chief Complaint:
CKD
History of Present Illness:
cr stable 2.0
BP stable
acidosis resolved
s/p cardiac cath 01/25 LAD PCI
Review of Systems:
no cp or sob
feels well
Labs
-
Labs:
WBC 9.4 10^3/uL (4.8-10.8) 01/27/24 03:54
RBC 4.16 10^6/uL (4.20-5.40) L 01/27/24 03:54
Hgb 11.5 g/dL (12.0-16.0) L 01/27/24 03:54
Hct 34.8 % (37.0-47.0) L 01/27/24 03:54
Plt Count 198 10^3/uL (130-400) 01/27/24 03:54
Sodium 141 mmol/L (135-145) 01/27/24 03:54
Potassium 4.6 mmol/L (3.5-5.1) 01/27/24 03:54
Chloride 106 mmol/L (98-107) 01/27/24 03:54
Carbon Dioxide 19 mmol/L (22-30) L 01/27/24 03:54
BUN 37 mg/dl (7-17) H 01/27/24 03:54
Creatinine 2.0 mg/dL (0.6-1.0) H 01/27/24 03:54
eGFR 25.10 01/27/24 03:54
Glucose 127 mg/dl (70-99) H 01/27/24 03:54
Calcium 9.0 mg/dl (8.4-10.2) 01/27/24 03:54
Albumin 3.9 g/dl (3.5-5.0) 01/26/24 04:49
Physical Exam
-
Vital Signs:
Vital Signs
Temp Pulse Resp BP Pulse Ox
97.3 F 77 18 121/53 95
01/27/24 11:16 01/27/24 10:15 01/27/24 11:16 01/27/24 08:35 01/27/24 11:16
Cardiovascular:: Regular rate and rhythm
Respiratory:: Bilateral: CTA
Lung Excursion:: Normal
Abdomen:: Nontender and Soft
Bowel Sounds:: Normal
Extremity Edema:: None: Bilateral:
--- NOTE | 2024-01-27 12:36 | W.PN.HOSP.TC ---
Today's Communication/Plan
-
dc to home
Assessment / Plan
Assessment / Plan
Assessment:
CAD
- recent abnormal outpatient stress test
- elective cath 01/23: Significant 85 to 90% mid LAD stenosis. 50% mid RCA and mid left circumflex stenosis just proximal to OM takeoff. Elevated LVEDP at 23 mmHg.
- s/p interventional cath 01/25 with LAD stenting
- continue ASA/Plavix/Statin/BB
- DCA Cards following
- OP Cardiac rehab
Hx of CKD stage 4
previously on HD in 2018
- Cr baseline is 1.9 to 2.1
- Nephrology recommends BMP in 1 week after dc
Essential HTN
- continue BB
type 2 DM
- continue Lantus 10 units HS
- continue SSI
- A1c 7.6%
- resume Ozempic
Hypothyroidism
- continue oral replacement
DVT ppx: Lovenox
Code: Full
More than 30 minutes spent in discharge including
Final examination of the patient
Summarizing hospital stay
Instructions for continuing care to all relevant caregivers
Preparation of discharge records, prescriptions, and referral forms
Total time spent (in minutes): 41
Anticipated Discharge: Today
Subjective/Interval History
-
Date of Service: January 27, 2024
denies any new complaints at present
Objective Data
-
Labs:
Laboratory Results
01/27/24
03:54
WBC 9.4
Hgb 11.5 L
Hct 34.8 L
Plt Count 198
Sodium 141
Potassium 4.6
Chloride 106
Carbon Dioxide 19 L
BUN 37 H
Creatinine 2.0 H
Glucose 127 H
Calcium 9.0
Vital Signs:
Vital Signs
Temp Pulse Resp BP Pulse Ox
97.3 F 77 18 121/53 95
01/27/24 11:16 01/27/24 10:15 01/27/24 11:16 01/27/24 08:35 01/27/24 11:16
I&O
01/26/24 01/27/24 01/28/24
06:59 06:59 06:59
Intake Total 240 / 240 1170 / 1170
Balance 240 / 240 1170 / 1170
Physical Exam
-
General: No Apparent Distress
HEENT: Normocephalic and Atraumatic
Respiratory: Negative Wheezes
Cardiac: Regular Rhythm and S1/S2
GI: Soft
Musculoskeletal: No Edema
Neuro: AO x 3
Hematologic / Lymphatic: No Lymphadenopathy
Psych: Calm
Data Reviewed
-
Total Time Spent with Patient (in minutes): 41
Labs: Labs Reviewed by me
--- NOTE | 2024-01-27 12:42 | W.DS.TRANS ---
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
-
Discharge Instructions:
Discharge Diagnosis/Procedures heart cath 01/23, and repeat heart cath 01/25 with
Angioplasty and stent to Left Anterior
Descending artery
Diet Diabetic, Carb Controlled,Low Cholesterol
Activity No strenuous activity
Additional Activity no heavy lifting greater than 10 pounds for 1
week
Driving Restrictions No driving for 24 hours
Other Services Cardiac Rehab
Instructions:
Stand-Alone Forms: DC Instructions- Cath/EP Lab
Changes to Home Medications: No
Discharge Medications:
DC Medications w/original date entered in [employer]
cholecalciferol (vitamin D3) 50 mcg (2,000 unit) capsule (Vitamin D3) 2,000 unit PO DAILY Supplement 02/26/17
levothyroxine 125 mcg tablet 100 mcg PO MOTUWETHFRSA@0800 Thyroid 02/26/17
betamethasone valerate 0.1 % topical cream 1 applic topical TID PRN armpits 01/24/24
famotidine 20 mg tablet (Pepcid) 20 mg PO BID Gastrointestinal Issue 01/24/24
insulin glargine 100 unit/mL (3 mL) subcutaneous pen (Lantus Solostar U-100 Insulin) 10 unit SC HS Diabetes 01/24/24
semaglutide 0.25 mg or 0.5 mg (2 mg/1.5 mL) subcutaneous pen injector (Ozempic) 0.5 mg SC QWEEK Diabetes 01/24/24
cyanocobalamin (vitamin B-12) 2,000 mcg tablet,extended release (Vitamin B-12 ER) 2,000 mcg PO DAILY Supplement 01/25/24
aspirin 81 mg chewable tablet 81 mg PO DAILY #100 tabs 01/27/24
carvedilol 6.25 mg tablet 6.25 mg PO BID #60 tabs 01/27/24
clopidogrel 75 mg tablet 75 mg PO DAILY #30 tabs 01/27/24
rosuvastatin 20 mg tablet 20 mg PO QPM #30 tabs 01/27/24
Home Medication Changes
Pending Results: No
Total time spent discharging patient (in min): 42
--- NOTE | 2024-01-27 12:42 | W.DS.TRANS ---
DC Summary - [employer]
-
Discharge Instructions:
Discharge Diagnosis/Procedures heart cath 01/23, and repeat heart cath 01/25 with
Angioplasty and stent to Left Anterior
Descending artery
Diet Diabetic, Carb Controlled,Low Cholesterol
Activity No strenuous activity
Additional Activity no heavy lifting greater than 10 pounds for 1
week
Driving Restrictions No driving for 24 hours
Other Services Cardiac Rehab
Instructions:
Stand-Alone Forms: DC Instructions- Cath/EP Lab
Changes to Home Medications: Yes
Discharge Medications:
DC Medications w/original date entered in [employer]
cholecalciferol (vitamin D3) 50 mcg (2,000 unit) capsule (Vitamin D3) 2,000 unit PO DAILY Supplement 02/26/17
levothyroxine 125 mcg tablet 100 mcg PO MOTUWETHFRSA@0800 Thyroid 02/26/17
betamethasone valerate 0.1 % topical cream 1 applic topical TID PRN armpits 01/24/24
famotidine 20 mg tablet (Pepcid) 20 mg PO BID Gastrointestinal Issue 01/24/24
insulin glargine 100 unit/mL (3 mL) subcutaneous pen (Lantus Solostar U-100 Insulin) 10 unit SC HS Diabetes 01/24/24
semaglutide 0.25 mg or 0.5 mg (2 mg/1.5 mL) subcutaneous pen injector (Ozempic) 0.5 mg SC QWEEK Diabetes 01/24/24
cyanocobalamin (vitamin B-12) 2,000 mcg tablet,extended release (Vitamin B-12 ER) 2,000 mcg PO DAILY Supplement 01/25/24
aspirin 81 mg chewable tablet 81 mg PO DAILY #100 tabs 01/27/24
carvedilol 6.25 mg tablet 6.25 mg PO BID #60 tabs 01/27/24
clopidogrel 75 mg tablet 75 mg PO DAILY #30 tabs 01/27/24
rosuvastatin 20 mg tablet 20 mg PO QPM #30 tabs 01/27/24
Home Medication Changes
coreg instead of bystolic
Pending Results: No
Total time spent discharging patient (in min): 42
== END 2024-01-27 14:43 | disposition home or self-care (01) | DRG 322 ==
LOC: IVU 10:08
PROVIDERS: Internal Medicine Interventional Cardiology; Nurse Practitioner; ADMITTING PHYSICIAN Internal Medicine; CONSULT PHYSICIAN Internal Medicine; FAMILY PHYSICIAN Family Medicine
PROC: 4A023N7 Measurement of Cardiac Sampling and Pressure, Left Heart, Percutaneous Approach (ICD-10-PCS; 2024-01-24)
PROC: B2151ZZ Fluoroscopy of Left Heart using Low Osmolar Contrast (ICD-10-PCS; 2024-01-24)
PROC: 027034Z Dilation of Coronary Artery, One Artery with Drug-eluting Intraluminal Device, Percutaneous Approach (ICD-10-PCS; 2024-01-24)
PROC: B2111ZZ Fluoroscopy of Multiple Coronary Arteries using Low Osmolar Contrast (ICD-10-PCS; 2024-01-24)
DX: I25.119 Atherosclerotic heart disease of native coronary artery with unspecified angina pectoris (principal); N18.4 Chronic kidney disease, stage 4 (severe); Z87.891 Personal history of nicotine dependence; E11.22 Type 2 diabetes mellitus with diabetic chronic kidney disease; Z79.82 Long term (current) use of aspirin; E78.5 Hyperlipidemia, unspecified; E03.9 Hypothyroidism, unspecified
CPT/HCPCS: 80048; 80053; 80061; 82962; 83036; 85027; 85347; 93005; 93452; 93458; 99152; 99153; C1725; C1769; C1874; C1894; C9600; Q9967

== ENCOUNTER → 2024-02-07 13:44 | Outpatient (REF) | payer MEDICARE, BC, SELFPAY ==
[2024-02-07 14:38] LABS: Urine Albumin 1+ (Neg - Trace); Urine Bilirubin Negative (Negative); Urine Character Clear (Clear); Urine Color Yellow; Urine Glucose Negative (Negative); Urine Ketone Negative (Negative); Urine Leukocyte 2+ (Negative); Urine Nitrite Negative (Negative); Urine Occult Blood Negative (Negative); Urine Urobilinogen Negative (Neg - 1+)
[2024-02-07 14:43] LABS: Hematocrit 34.8 % (37.0-47.0); Hemoglobin 11.3 g/dL (12.0-16.0); Mean Corp Hgb Conc. 32.5 g/dL (33.0-37.0); Mean Corpuscular Hgb 26.8 pg (27.0-31.0); Mean Corpuscular Volume 82.7 fL (81.0-99.0); Mean Platelet Volume 8.2 fL (7.4-10.4); Platelet Count 219 10^3/uL (130-400); Red Blood Cell Count 4.21 10^6/uL (4.20-5.40); Red Cell Dist. Width 14.5 % (11.5-14.5); White Blood Cell Count 10.2 10^3/uL (4.8-10.8)
[2024-02-07 14:47] LABS: Urine Mucus Few; Urine Squamous Cell >30 /LPF (Few)
[2024-02-07 14:49] LABS: Urine Bacteria Moderate (Negative); Urine White Cell 21-25 /HPF (0-5)
[2024-02-07 15:00] LABS: Protein/creatinine Ratio 0.5; Urine Protein 83 mg/dl
[2024-02-07 15:03] LABS: ALT (SGPT) 27 U/L (0-35); AST (SGOT) 26 U/L (14-36); Albumin 3.8 g/dl (3.5-5.0); Alkaline Phosphatase 40 U/L (38-126); Blood Urea Nitrogen 38 mg/dl (7-17); Calcium 9.3 mg/dl (8.4-10.2); Carbon Dioxide 24 mmol/L (22-30); Chloride 104 mmol/L (98-107); Glucose 152 mg/dl (70-99); Potassium 4.8 mmol/L (3.5-5.1); Sodium 143 mmol/L (135-145); Total Bilirubin 1.5 mg/dl (0.2-1.3); Total Protein 6.8 g/dl (6.3-8.2); eGFR 23.67
[2024-02-07 15:18] LABS: Calcium 9.6 mg/dl (8.4-10.2); Phosphorus 4.6 mg/dl (2.5-4.5)
== END ==
LOC: REG 13:44
PROVIDERS: ATTENDING PHYSICIAN Internal Medicine Interventional Cardiology; FAMILY PHYSICIAN Family Medicine; OTHER PHYSICIAN Specialist
DX: D64.9 Anemia, unspecified (principal); R31.9 Hematuria, unspecified; N18.4 Chronic kidney disease, stage 4 (severe); E83.39 Other disorders of phosphorus metabolism; R80.9 Proteinuria, unspecified; C64.9 Malignant neoplasm of unspecified kidney, except renal pelvis
CPT/HCPCS: 36415; 80053; 81003; 81015; 82570; 83021; 83970; 84100; 84156; 85027

== ENCOUNTER 2024-02-28 15:24 | Outpatient (RCR) | payer MEDICARE, BC, SELFPAY ==
[2024-02-24 15:44] LABS: Glucose - Point of Care 171 mg/dl (70-99)
[2024-02-24 16:11] LABS: Glucose - Point of Care 154 mg/dl (70-99)
[2024-02-28 14:43] LABS: Glucose - Point of Care 290 mg/dl (70-99)
[2024-02-28 15:41] LABS: Glucose - Point of Care 188 mg/dl (70-99)
== END 2024-02-28 23:59 | disposition home or self-care (01) ==
LOC: CRHB 15:24
PROVIDERS: ATTENDING PHYSICIAN Internal Medicine Interventional Cardiology
DX: I25.10 Atherosclerotic heart disease of native coronary artery without angina pectoris (principal); Z95.5 Presence of coronary angioplasty implant and graft
CPT/HCPCS: 82962; G0422; G0423

== ENCOUNTER 2024-03-29 15:31 | Outpatient (RCR) | payer MEDICARE, BC, SELFPAY ==
[2024-03-03 14:50] LABS: Glucose - Point of Care 230 mg/dl (70-99)
[2024-03-03 15:40] LABS: Glucose - Point of Care 167 mg/dl (70-99)
--- NOTE | 2024-03-06 17:25 | W.PN.UPDATE ---
Update Note
Progress Note Update
Notified by Yolyn text from cardiac rehab services due to concern for asymptomatic atrial flutter which would be a new diagnosis. Asked him to obtain twelve-lead EKG which was reviewed. EKG sinus rhythm With right bundle branch block. Patient has
a back stimulator which may be causing some artifact noted on telemetry. No change to medical therapy. Can continue cardiac rehab
[2024-03-08 14:59] LABS: Glucose - Point of Care 146 mg/dl (70-99)
[2024-03-08 15:53] LABS: Glucose - Point of Care 90 mg/dl (70-99)
[2024-03-08 16:11] LABS: Glucose - Point of Care 105 mg/dl (70-99)
[2024-03-10 14:45] LABS: Glucose - Point of Care 153 mg/dl (70-99)
[2024-03-10 15:39] LABS: Glucose - Point of Care 93 mg/dl (70-99)
[2024-03-10 16:00] LABS: Glucose - Point of Care 104 mg/dl (70-99)
[2024-03-20 14:55] LABS: Glucose - Point of Care 166 mg/dl (70-99)
[2024-03-20 15:56] LABS: Glucose - Point of Care 109 mg/dl (70-99)
[2024-03-22 14:49] LABS: Glucose - Point of Care 284 mg/dl (70-99)
[2024-03-22 15:47] LABS: Glucose - Point of Care 182 mg/dl (70-99)
[2024-03-24 15:01] LABS: Glucose - Point of Care 145 mg/dl (70-99)
[2024-03-24 16:00] LABS: Glucose - Point of Care 112 mg/dl (70-99)
[2024-03-27 14:41] LABS: Glucose - Point of Care 140 mg/dl (70-99)
[2024-03-27 15:38] LABS: Glucose - Point of Care 92 mg/dl (70-99)
[2024-03-27 15:51] LABS: Glucose - Point of Care 102 mg/dl (70-99)
[2024-03-29 14:52] LABS: Glucose - Point of Care 184 mg/dl (70-99)
[2024-03-29 15:53] LABS: Glucose - Point of Care 113 mg/dl (70-99)
== END 2024-03-29 23:59 | disposition home or self-care (01) ==
LOC: CRHB 15:31
PROVIDERS: ATTENDING PHYSICIAN Internal Medicine Interventional Cardiology
DX: I25.10 Atherosclerotic heart disease of native coronary artery without angina pectoris (principal); Z95.5 Presence of coronary angioplasty implant and graft
CPT/HCPCS: 82962; 93005; G0422; G0423

== ENCOUNTER 2024-05-01 11:46 | Outpatient (RCR) | payer MEDICARE, BC, SELFPAY ==
[2024-04-03 15:03] LABS: Glucose - Point of Care 179 mg/dl (70-99)
[2024-04-03 15:57] LABS: Glucose - Point of Care 115 mg/dl (70-99)
[2024-04-05 14:47] LABS: Glucose - Point of Care 259 mg/dl (70-99)
[2024-04-05 15:52] LABS: Glucose - Point of Care 157 mg/dl (70-99)
[2024-04-07 14:37] LABS: Glucose - Point of Care 145 mg/dl (70-99)
[2024-04-07 15:36] LABS: Glucose - Point of Care 95 mg/dl (70-99)
[2024-04-07 15:50] LABS: Glucose - Point of Care 112 mg/dl (70-99)
[2024-04-10 14:54] LABS: Glucose - Point of Care 155 mg/dl (70-99)
[2024-04-10 15:50] LABS: Glucose - Point of Care 89 mg/dl (70-99)
[2024-04-10 16:06] LABS: Glucose - Point of Care 102 mg/dl (70-99)
[2024-04-14 14:46] LABS: Glucose - Point of Care 123 mg/dl (70-99)
[2024-04-14 15:46] LABS: Glucose - Point of Care 104 mg/dl (70-99)
[2024-04-17 14:43] LABS: Glucose - Point of Care 237 mg/dl (70-99)
[2024-04-17 15:43] LABS: Glucose - Point of Care 138 mg/dl (70-99)
[2024-04-19 14:49] LABS: Glucose - Point of Care 199 mg/dl (70-99)
[2024-04-19 15:56] LABS: Glucose - Point of Care 91 mg/dl (70-99)
[2024-04-19 16:11] LABS: Glucose - Point of Care 102 mg/dl (70-99)
[2024-04-28 14:38] LABS: Glucose - Point of Care 180 mg/dl (70-99)
[2024-04-28 15:42] LABS: Glucose - Point of Care 112 mg/dl (70-99)
[2024-05-01 11:11] LABS: Glucose - Point of Care 285 mg/dl (70-99)
[2024-05-01 12:17] LABS: Glucose - Point of Care 107 mg/dl (70-99)
== END 2024-05-01 23:59 | disposition home or self-care (01) ==
LOC: CRHB 11:46
PROVIDERS: ATTENDING PHYSICIAN Internal Medicine Interventional Cardiology
DX: I25.10 Atherosclerotic heart disease of native coronary artery without angina pectoris (principal); Z95.5 Presence of coronary angioplasty implant and graft
CPT/HCPCS: 82962; G0422; G0423

== ENCOUNTER 2024-06-02 15:00 | Outpatient (RCR) | payer MEDICARE, BC, SELFPAY ==
[2024-05-05 14:45] LABS: Glucose - Point of Care 99 mg/dl (70-99)
[2024-05-05 15:03] LABS: Glucose - Point of Care 90 mg/dl (70-99)
[2024-05-05 15:20] LABS: Glucose - Point of Care 99 mg/dl (70-99)
[2024-05-05 15:53] LABS: Glucose - Point of Care 131 mg/dl (70-99)
[2024-05-10 14:45] LABS: Glucose - Point of Care 154 mg/dl (70-99)
[2024-05-10 15:53] LABS: Glucose - Point of Care 102 mg/dl (70-99)
[2024-05-12 14:40] LABS: Glucose - Point of Care 144 mg/dl (70-99)
[2024-05-12 15:40] LABS: Glucose - Point of Care 118 mg/dl (70-99)
[2024-05-15 15:07] LABS: Glucose - Point of Care 240 mg/dl (70-99)
[2024-05-15 16:02] LABS: Glucose - Point of Care 157 mg/dl (70-99)
[2024-05-17 14:51] LABS: Glucose - Point of Care 139 mg/dl (70-99)
[2024-05-17 16:03] LABS: Glucose - Point of Care 117 mg/dl (70-99)
[2024-05-19 14:45] LABS: Glucose - Point of Care 176 mg/dl (70-99)
[2024-05-19 15:53] LABS: Glucose - Point of Care 137 mg/dl (70-99)
[2024-05-24 14:54] LABS: Glucose - Point of Care 196 mg/dl (70-99)
[2024-05-24 16:05] LABS: Glucose - Point of Care 142 mg/dl (70-99)
== END 2024-06-02 23:59 | disposition home or self-care (01) ==
LOC: CRHB 15:00
PROVIDERS: ATTENDING PHYSICIAN Internal Medicine Interventional Cardiology
DX: I25.10 Atherosclerotic heart disease of native coronary artery without angina pectoris (principal); Z95.5 Presence of coronary angioplasty implant and graft
CPT/HCPCS: 82962; G0422; G0423

== ENCOUNTER 2024-06-07 15:32 | Outpatient (RCR) | payer MEDICARE, BC, SELFPAY | END 2024-06-09 14:27 | disposition home or self-care (01) | LOC: CRHB 15:32 | PROVIDERS: ATTENDING PHYSICIAN Internal Medicine Interventional Cardiology | DX: I25.10 Atherosclerotic heart disease of native coronary artery without angina pectoris (principal); Z95.5 Presence of coronary angioplasty implant and graft | CPT/HCPCS: G0422; G0423 ==

== ENCOUNTER → 2024-09-07 16:16 | Outpatient (REF) | payer MEDICARE, BC, SELFPAY ==
[2024-09-07 17:22] LABS: Hemoglobin 11.9 g/dL (12.0-16.0)
[2024-09-07 17:24] LABS: Urine Albumin 3+ (Neg - Trace); Urine Bilirubin Negative (Negative); Urine Character Slightly Cloudy (Clear); Urine Color Yellow; Urine Glucose Negative (Negative); Urine Ketone Negative (Negative); Urine Leukocyte 3+ (Negative); Urine Nitrite Negative (Negative); Urine Occult Blood 4+ (Negative); Urine Specific Gravity 1.015 (<1.030); Urine Urobilinogen Negative (Neg - 1+)
[2024-09-07 17:31] LABS: Blood Urea Nitrogen 26 mg/dl (7-17); Calcium 9.4 mg/dl (8.4-10.2); Carbon Dioxide 29 mmol/L (22-30); Chloride 106 mmol/L (98-107); Glucose 117 mg/dl (70-99); Phosphorus 3.8 mg/dl (2.5-4.5); Potassium 4.9 mmol/L (3.5-5.1); Sodium 140 mmol/L (135-145); eGFR 28.48
[2024-09-07 17:35] LABS: Urine Bacteria Moderate (Negative); Urine Red Blood Cell 60-70 /HPF (0-2)
[2024-09-09 11:07] LABS: Intact PTH 72.1 pg/ml (13.6-85.8)
== END ==
LOC: REG 16:16
PROVIDERS: ATTENDING PHYSICIAN Specialist; FAMILY PHYSICIAN Family Medicine
DX: R80.9 Proteinuria, unspecified (principal); I10 Essential (primary) hypertension; N18.4 Chronic kidney disease, stage 4 (severe); D64.9 Anemia, unspecified; N17.9 Acute kidney failure, unspecified
CPT/HCPCS: 36415; 80048; 81003; 81015; 83970; 84100; 85018

== ENCOUNTER → 2024-12-13 14:54 | Outpatient (REF) | payer MEDICARE, BC, SELFPAY | LOC: WDC 14:54 | PROVIDERS: ATTENDING PHYSICIAN Family Medicine | DX: Z12.31 Encounter for screening mammogram for malignant neoplasm of breast (principal) | CPT/HCPCS: 77063; 77067 ==

== ENCOUNTER → 2024-12-19 09:21 | Outpatient (REF) | payer MEDICARE, BC, SELFPAY | LOC: WDC 09:21 | PROVIDERS: ATTENDING PHYSICIAN Family Medicine | DX: R92.8 Other abnormal and inconclusive findings on diagnostic imaging of breast (principal) | CPT/HCPCS: 76642 ==

== ENCOUNTER → 2025-01-10 14:12 | Outpatient (REF) | payer MEDICARE, BC, SELFPAY | LOC: RAD 14:12 | PROVIDERS: ATTENDING PHYSICIAN Family Medicine | DX: Z78.0 Asymptomatic menopausal state (principal) | CPT/HCPCS: 77080 ==

== ENCOUNTER 2025-02-15 06:29 | Day surgery (SDC) | payer MEDICARE, BC, SELFPAY ==
[2025-02-15 07:25] LABS: Glucose - Point of Care 128 mg/dl (70-99)
== END 2025-02-15 08:39 | disposition home or self-care (01) ==
LOC: GI 06:29
PROVIDERS: ATTENDING PHYSICIAN Internal Medicine Gastroenterology
DX: Z12.11 Encounter for screening for malignant neoplasm of colon (principal); K57.30 Diverticulosis of large intestine without perforation or abscess without bleeding; K64.8 Other hemorrhoids; Z86.0100 Personal history of colon polyps, unspecified
CPT/HCPCS: G0105; 82962

== ENCOUNTER → 2025-03-01 16:50 | Outpatient (REF) | payer MEDICARE, BC, SELFPAY ==
[2025-03-01 17:37] LABS: Hemoglobin 12.0 g/dL (12.0-16.0)
[2025-03-01 17:43] LABS: Urine Character Slightly Cloudy (Clear)
[2025-03-01 17:58] LABS: Urine Squamous Cell 0-2 /LPF (Few)
[2025-03-01 17:59] LABS: Blood Urea Nitrogen 34 mg/dl (7-17); Calcium 9.4 mg/dl (8.4-10.2); Carbon Dioxide 25 mmol/L (22-30); Chloride 106 mmol/L (98-107); Glucose 154 mg/dl (70-99); Potassium 4.8 mmol/L (3.5-5.1); Sodium 139 mmol/L (135-145); Urine Red Blood Cell 16-20 /HPF (0-2); Urine White Cell 70-80 /HPF (0-5); eGFR 30.32
== END ==
LOC: REG 16:50
PROVIDERS: ATTENDING PHYSICIAN Specialist; FAMILY PHYSICIAN Family Medicine
DX: R80.9 Proteinuria, unspecified (principal); N18.6 End stage renal disease; N18.4 Chronic kidney disease, stage 4 (severe)
CPT/HCPCS: 36415; 80048; 81003; 81015; 82570; 83970; 84100; 84156; 85018

== ENCOUNTER → 2025-03-06 13:48 | Outpatient (REF) | payer MEDICARE, BC, SELFPAY | LOC: REG 13:48 | PROVIDERS: ATTENDING PHYSICIAN Specialist; FAMILY PHYSICIAN Family Medicine | DX: N18.32 Chronic kidney disease, stage 3b (principal); R31.29 Other microscopic hematuria | CPT/HCPCS: 87086 ==

== ENCOUNTER → 2025-04-09 14:20 | Outpatient (REF) | payer MEDICARE, BC, SELFPAY ==
[2025-04-09 16:03] LABS: Blood Urea Nitrogen 39 mg/dl (7-17); Calcium 9.1 mg/dl (8.4-10.2); Carbon Dioxide 25 mmol/L (22-30); Chloride 104 mmol/L (98-107); Glucose 119 mg/dl (70-99); Potassium 5.1 mmol/L (3.5-5.1); Sodium 136 mmol/L (135-145); eGFR 23.53
== END ==
LOC: REG 14:20
PROVIDERS: ATTENDING PHYSICIAN Specialist; FAMILY PHYSICIAN Family Medicine
DX: D64.9 Anemia, unspecified (principal); R31.9 Hematuria, unspecified; N18.4 Chronic kidney disease, stage 4 (severe); E83.39 Other disorders of phosphorus metabolism; N17.9 Acute kidney failure, unspecified
CPT/HCPCS: 36415; 80048